=== PATIENT | male | born 1965 | race Hispanic/Latino ===

== ENCOUNTER 2023-07-25 03:19 | Inpatient (IN) | payer OTHER ==
[~2023-07-25] VITALS: Ht 172.7 cm; Wt 70.8 kg
[2023-07-25] VITALS (62 sets, daily range): BP systolic 80–154; BP diastolic 43–73; PULSE 56–85; RESP 10–40; O2SAT 93–97
[2023-07-25 03:53] LABS: BASOPHILS # (AUTO) 0.07 K/uL (0.00-0.20); BASOPHILS % (AUTO) 0.4 % (0.0-5.0); EOSINOPHILS # (AUTO) 1.86 K/uL (0.00-0.70); EOSINOPHILS % (AUTO) 9.6 % (0.0-8.0); HEMATOCRIT 38.2 % (42-54); IMMATURE GRANULOCYTE ABSOLUTE 0.16 K/uL (0-1); LYMPHOCYTES # (AUTO) 0.2 K/uL (1.0-4.8); LYMPHOCYTES % (AUTO) 1.1 % (21.0-51.0); MEAN CORPUSCULAR HGB CONC 38.5 g/dL (32.0-36.0); MONOCYTES # (AUTO) 1.9 K/uL (0.1-1.0); MONOCYTES % (AUTO) 9.7 % (3.0-13.0); NEUTROPHILS # (AUTO) 15.2 K/uL (1.8-7.7); NEUTROPHILS % (AUTO) 78.4 % (40.0-77.0); PLATELET COUNT (AUTO) 144 K/uL (130-400); WHITE BLOOD COUNT (AUTO) 19.4 K/uL (4.8-10.8)
[2023-07-25] MEDS ORDERED: ONDANSETRON 4MG INJ IVP ONE ×2 (04:00→04:30)
[2023-07-25 04:01] LABS: ALANINE AMINOTRANSFERASE 52 U/L (12-78); ALBUMIN 3.9 g/dL (3.5-5.0); ALCOHOL, BLOOD < 3 mg/dL (0-10); AMMONIA 59 umol/L (11-32); ASPARTATE AMINOTRANSFERASE 100 U/L (10-37); BILIRUBIN,TOTAL 4.5 mg/dL (0.2-1.0); CARBON DIOXIDE 34 mmol/L (21-32); CREATININE 1.7 mg/dL (0.5-1.5); GLOMERULAR FILTR. RATE CALC 46 mL/min (>90); GLUCOSE,RANDOM 176 mg/dL (70-105); TOTAL PROTEIN, SERUM 7.4 g/dL (6.0-8.3); UREA NITROGEN, BLOOD 19 mg/dL (7-18)
[2023-07-25 04:02] LABS: INR 1.22 (0.85-1.15)
[2023-07-25 04:03] LABS: PARTIAL THROMBOPLASTIN TIME 27.4 SEC (26.3-35.5); POTASSIUM 2.4 mmol/L (3.5-5.1); SODIUM SERUM 105 mmol/L (136-145)
[2023-07-25 04:04] LABS: CHLORIDE 60 mmol/L (101-111)
[2023-07-25] MEDS ORDERED: LEVETIRACETAM 500 MG/5 ML SD VIAL IV SCH (04:30)
[2023-07-25] MEDS ORDERED: HALOPERIDOL INJ 5 MG/ML VIAL IV SCH (04:30)
[2023-07-25] MEDS ORDERED: 0.9%NACL 1000ML 1,000 ML IV ONE (04:30)
[2023-07-25] MEDS ORDERED: POTASSIUM CHLORIDE 20MEQ/10ML 10 MEQ in 0.9%NACL 50ML 50 ML IV SCH ×4 (04:30)
[2023-07-25] MEDS ORDERED: 0.9%NACL 1000ML 1,000 ML IV SCH ×2 (04:30→05:00)
[2023-07-25 04:48] LABS: ABG BASE EXCESS 11.3 mmol/L (-2.0-3.0); ABG HCO3 36.2 mmol/L (21.0-28.0); ABG OXYGEN SATURATION 81.3 % (95.0-99.0); ABG PCO2 49 mmHg (35-48); ABG PH 7.491 (7.35-7.450); CARBON MONOXIDE 1.5; HHb 18.4; PO2, ARTERIAL BG 45.8 mmHg (83.0-108.0); VENT MODE, BG ROOMAIR (ROOM AIR)
[2023-07-25] MEDS ORDERED: POTASSIUM CHLORIDE 20MEQ/100ML 100 ML IV ONE ×2 (04:49→11:17)
[2023-07-25 04:53] LABS: THYROID STIMULATING HORMONE 1.21 uIU/mL (0.36-3.74)
[2023-07-25 04:59] LABS: ABG BASE EXCESS 10.2 mmol/L (-2.0-3.0); ABG HCO3 34.6 mmol/L (21.0-28.0); ABG OXYGEN SATURATION 88.8 % (95.0-99.0); ABG PCO2 45 mmHg (35-48); ABG PH 7.501 (7.35-7.450); CARBON MONOXIDE 1.3; VENT MODE, BG ROOMAIR (ROOM AIR)
[2023-07-25] MEDS ORDERED: ONDANSETRON 4MG INJ IV PRN (05:00)
[2023-07-25] MEDS ORDERED: LACTULOSE 20 GM/30 ML UDCUP PO PRN (05:00)
[2023-07-25] MEDS ORDERED: POTASSIUM CHLORIDE 20MEQ/100ML 100 ML IV SCH (05:00)
[2023-07-25] MEDS ORDERED: CHLORDIAZEPOXIDE HCL 25 MG CAP PO PRN (05:00)
[2023-07-25] MEDS ORDERED: PHARMACY COMMUNICATION MISC PRN (05:00)
[2023-07-25 05:46] LABS: CREATININE 1.2 mg/dL (0.5-1.5)
[2023-07-25] MEDS ORDERED: CEFTRIAXONE 1G VIAL IVPB ONE (06:00)
[2023-07-25] MEDS ORDERED: AZITHROMYCIN 500MG+NS 250ML IVPB SCH (06:00)
[2023-07-25 06:32] LABS: APPEARANCE,URINE CLEAR (CLEAR); BILIRUBIN,URINE NEGATIVE (NEGATIVE); COLOR,URINE YELLOW (YELLOW); GLUCOSE, URINE (UA) NEGATIVE (NEGATIVE); KETONES,URINE NEGATIVE (NEGATIVE); LEUKOCYTE ESTERASE ,URINE NEGATIVE Leu/uL (NEGATIVE); MUCUS,URINE RARE LPF (None Seen); NITRATE,URINE NEGATIVE (NEGATIVE); PROTEIN,URINE NEGATIVE (NEGATIVE); WBC,URINE 0-1 /HPF (0-1)
[2023-07-25 06:42] LABS: AMPHET/METH SCREEN,URINE NEGATIVE (NEGATIVE); BARBITURATE SCREEN, URINE NEGATIVE (NEGATIVE); BENZODIAZEPINES SCREEN,URINE NEGATIVE (NEGATIVE); CANNABINOID SCREEN,URINE NEGATIVE (NEGATIVE); COCAINE SCREEN,URINE NEGATIVE (NEGATIVE); OPIATE SCREEN,URINE NEGATIVE (NEGATIVE); PHENCYCLIDINE SCREEN,URINE NEGATIVE (NEGATIVE)
[2023-07-25] MEDS ORDERED: COMPOUND IV REFRIGERATED 1 EACH IVSOLN MISC PRN (07:00)
[2023-07-25] MEDS ORDERED: POTASSIUM CHLORIDE 20MEQ/100ML 100 ML IV PRN (07:00)
[2023-07-25] MEDS ORDERED: MAGNESIUM 2GM PREMIX 50ML 50 ML IV PRN (07:00)
[2023-07-25] MEDS ORDERED: COMPOUND IV MISC 1 EACH IVSOLN MISC PRN (07:00)
[2023-07-25] MEDS: NS-20 MEQ KCL 1000ML 1,000 ML IV SCH ×2 (07:39→16:44)
[2023-07-25 08:27] LABS: APPEARANCE,URINE CLEAR (CLEAR); BILIRUBIN,URINE NEGATIVE (NEGATIVE); COLOR,URINE LIGHT-YELLOW (YELLOW); GLUCOSE, URINE (UA) NEGATIVE (NEGATIVE); KETONES,URINE NEGATIVE (NEGATIVE); LEUKOCYTE ESTERASE ,URINE NEGATIVE Leu/uL (NEGATIVE); NITRATE,URINE NEGATIVE (NEGATIVE); OCCULT BLOOD,URINE NEGATIVE (NEGATIVE); PH,URINE 6.5 (5.0-8.0); PROTEIN,URINE NEGATIVE (NEGATIVE); RBC,URINE 0-1 /HPF (0-1); UROBILINOGEN,URINE 0.2 mg/dL (0.2-1.0)
[2023-07-25] MEDS ORDERED: SODIUM CHLORIDE 3% 500 ML IV ONE (08:30)
[2023-07-25 08:58] LABS: POTASSIUM 2.4 mmol/L (3.5-5.1)
[2023-07-25] MEDS: M.V.I. IV [ADULT] 10 ML, FOLIC ACID 1 MG, THIAMINE HCL 100 MG in 0.9%NACL 1000ML 1,000 ML IV SCH (08:59)
[2023-07-25] MEDS ORDERED: FOLIC ACID 1 MG TABLET PO SCH (09:00)
[2023-07-25] MEDS ORDERED: THIAMINE HCL 100 MG/ML 2ML VIAL IVP SCH (09:00)
[2023-07-25] MEDS ORDERED: PANTOPRAZOLE 40 MG/VIAL IVP SCH (09:00)
[2023-07-25] MEDS ORDERED: MULTIVITAMIN TABLET PO SCH (09:00)
[2023-07-25] MEDS ORDERED: THIAMINE HCL 100 MG/ML 2ML VIAL IM SCH (09:00)
[2023-07-25] MEDS: THIAMINE HCL 100 MG/ML 2ML VIAL IVP SCH ×2 (09:30→16:43)
[2023-07-25] MEDS: LACTULOSE 20 GM/30 ML UDCUP PO SCH ×3 (09:38→20:16)
[2023-07-25 09:46] LABS: HEMOGLOBIN A1C 4.9 % (4.0-6.0)
[2023-07-25 09:52] LABS: SARS-CoV-2, RNA, NAAT NEGATIVE SARS CoV-2 (NEGATIVE)
[2023-07-25 09:54] LABS: CHOLESTEROL 81 mg/dL (<200); HDL CHOLESTEROL 53 mg/dL (29-71); LDL DIRECT 28 mg/dL (0-99); TRIGLYCERIDES 50 mg/dL (30-200)
[2023-07-25 10:02] LABS: INFLUENZA TYPE A Negative For Type A (NEGATIVE)
[2023-07-25 10:10] LABS: INFLUENZA TYPE B Positive For Type B (NEGATIVE)
[2023-07-25 10:13] LABS: HIV 1&2 ANTIBODY Non-Reactive (Negative); HIV-1 p24 Antigen Non-Reactive (Negative)
[2023-07-25] MEDS: LEVOFLOXACIN 500 MG/D5W 100 ML 100 ML IV SCH (10:57)
[2023-07-25] MEDS ORDERED: OSELTAMIVIR PHOSPHATE 75 MG CAP PO ONE (11:00)
[2023-07-25] MEDS: KCL 20 MEQ ERTAB PO ONE ×2 (11:58→13:05)
[2023-07-25 12:06] LABS: POTASSIUM 2.3 mmol/L (3.5-5.1)
[2023-07-25] MEDS ORDERED: DIATR MEGLU/DIATRIZOATE SODIUM 30 ML BOTTLE ONE (12:26)
[2023-07-25] MEDS ORDERED: POTASSIUM CHLORIDE 10% ELIXIR 20 MEQ/15 ML UDCUP PO ONE (13:30)
[2023-07-25] MEDS: METRONIDAZOLE 500MG/100ML BAG 100 ML IVPB SCH ×2 (14:45→21:10)
[2023-07-25] MEDS ORDERED: IOHEXOL 350 MG/ML 100ML INFUS..BTL IV ONE (15:59)
[2023-07-25 17:17] LABS: CREATININE 0.9 mg/dL (0.5-1.5)
[2023-07-25 17:19] LABS: POTASSIUM 2.3 mmol/L (3.5-5.1)
[2023-07-25] MEDS: POTASSIUM CHLORIDE 10% ELIXIR 20 MEQ/15 ML UDCUP PO PRN ×3 (17:50→20:36)
[2023-07-25] MEDS: OSELTAMIVIR PHOSPHATE 75 MG CAP PO SCH (20:16)
[2023-07-25] MEDS: PANTOPRAZOLE 40 MG/VIAL IVP SCH (20:16)
[2023-07-25 20:31] LABS: CREATININE 0.8 mg/dL (0.5-1.5)
[2023-07-25 20:32] LABS: POTASSIUM 2.7 mmol/L (3.5-5.1)
[2023-07-25] MEDS: POTASSIUM CHLORIDE 10MEQ/100ML 100 ML IV PRN (21:11)
[2023-07-25] MEDS ORDERED: MAGNESIUM 4GM PREMIX 100ML IV SCH (22:30)
[2023-07-25] MEDS ORDERED: MAGNESIUM 4GM PREMIX 100ML IV ONE (22:44)
[2023-07-26] VITALS (68 sets, daily range): BP systolic 93–122; BP diastolic 42–68; PULSE 46–79; RESP 15–40; O2SAT 96–99
[2023-07-26 00:54] LABS: CREATININE 0.8 mg/dL (0.5-1.5)
[2023-07-26 00:57] LABS: POTASSIUM 2.7 mmol/L (3.5-5.1)
[2023-07-26] MEDS: POTASSIUM CHLORIDE 10MEQ/100ML 100 ML IV PRN ×4 (02:01→17:47)
[2023-07-26] MEDS: POTASSIUM CHLORIDE 10% ELIXIR 20 MEQ/15 ML UDCUP PO PRN ×4 (02:01→21:18)
[2023-07-26] MEDS: THIAMINE HCL 100 MG/ML 2ML VIAL IVP SCH ×3 (02:02→17:42)
[2023-07-26] MEDS: NS-20 MEQ KCL 1000ML 1,000 ML IV SCH ×2 (02:02→13:00)
[2023-07-26] MEDS: LACTULOSE 20 GM/30 ML UDCUP PO SCH ×4 (02:03→15:30)
[2023-07-26 04:48] LABS: BASOPHILS # (AUTO) 0.01 K/uL (0.00-0.20); BASOPHILS % (AUTO) 0.1 % (0.0-5.0); EOSINOPHILS # (AUTO) 0.01 K/uL (0.00-0.70); EOSINOPHILS % (AUTO) 0.1 % (0.0-8.0); HEMATOCRIT 35.1 % (42-54); IMMATURE GRANULOCYTE ABSOLUTE 0.05 K/uL (0-1); LYMPHOCYTES # (AUTO) 0.3 K/uL (1.0-4.8); LYMPHOCYTES % (AUTO) 3.6 % (21.0-51.0); MEAN CORPUSCULAR HEMOGLOBIN 31.9 pg (27.0-33.0); MEAN CORPUSCULAR HGB CONC 35.3 g/dL (32.0-36.0); MEAN CORPUSCULAR VOLUME 90.2 fL (79-99); MONOCYTES # (AUTO) 1.2 K/uL (0.1-1.0); MONOCYTES % (AUTO) 16.8 % (3.0-13.0); NEUTROPHILS # (AUTO) 5.4 K/uL (1.8-7.7); NEUTROPHILS % (AUTO) 78.7 % (40.0-77.0); PLATELET COUNT (AUTO) 101 K/uL (130-400); RED BLOOD CELL COUNT(AUTO) 3.89 MIL/uL (4.50-6.20); RED CELL DISTRIBUTION WIDTH 14.5 % (11.0-15.5); WHITE BLOOD COUNT (AUTO) 6.9 K/uL (4.8-10.8)
[2023-07-26 05:14] LABS: ALBUMIN 2.8 g/dL (3.5-5.0); BILIRUBIN,TOTAL 1.4 mg/dL (0.2-1.0); CREATININE 0.9 mg/dL (0.5-1.5); MAGNESIUM 2.9 mg/dL (1.80-2.40); POTASSIUM 3.6 mmol/L (3.5-5.1); TOTAL PROTEIN, SERUM 5.7 g/dL (6.0-8.3)
[2023-07-26] MEDS: METRONIDAZOLE 500MG/100ML BAG 100 ML IVPB SCH ×3 (06:04→21:17)
[2023-07-26] MEDS ORDERED: 0.9%NACL 1000ML 1,000 ML IV ONE (06:54)
[2023-07-26] MEDS: LEVOFLOXACIN 500 MG/D5W 100 ML 100 ML IV SCH (08:26)
[2023-07-26] MEDS: PANTOPRAZOLE 40 MG/VIAL IVP SCH (08:26)
[2023-07-26] MEDS: OSELTAMIVIR PHOSPHATE 75 MG CAP PO SCH ×3 (08:27→20:16)
[2023-07-26 08:31] LABS: CREATININE 0.8 mg/dL (0.5-1.5); POTASSIUM 3.7 mmol/L (3.5-5.1)
[2023-07-26] MEDS: M.V.I. IV [ADULT] 10 ML, FOLIC ACID 1 MG, THIAMINE HCL 100 MG in 0.9%NACL 1000ML 1,000 ML IV SCH (09:00)
[2023-07-26] MEDS ORDERED: PROPOFOL 10 MG/ML 20ML VIAL IV ONE ×2 (10:47→10:48)
[2023-07-26 11:57] LABS: CREATININE 0.8 mg/dL (0.5-1.5); POTASSIUM 3.5 mmol/L (3.5-5.1)
[2023-07-26 16:48] LABS: CREATININE 0.7 mg/dL (0.5-1.5); POTASSIUM 3.6 mmol/L (3.5-5.1)
[2023-07-26] MEDS: PANTOPRAZOLE 40 MG TAB DR PO SCH (20:16)
[2023-07-26 20:28] LABS: CREATININE 0.7 mg/dL (0.5-1.5); POTASSIUM 3.5 mmol/L (3.5-5.1)
[2023-07-26 21:22] LABS: SODIUM TIMED URINE SEE SEPARATE REPORT; TOTAL VOLUME URINE 24HR SEE SEPARATE REPORT; URINE COLLECTION PERIOD SEE SEPARATE REPORT
[2023-07-26 21:23] LABS: SODIUM URINE 24HR CALCULATION SEE SEPARATE REPORT
[2023-07-26] MEDS ORDERED: LORAZEPAM 2 MG/ML 1 ML VIAL IVP PRN (21:30)
[2023-07-27 00:09] VITALS: PULSE 56; RESP 18; O2SAT 98
[2023-07-27] MEDS: THIAMINE HCL 100 MG/ML 2ML VIAL IVP SCH ×2 (00:37→09:10)
[2023-07-27 03:58] VITALS: BP 118/69; PULSE 53; RESP 20
[2023-07-27 04:13] LABS: BASOPHILS # (AUTO) 0.01 K/uL (0.00-0.20); BASOPHILS % (AUTO) 0.2 % (0.0-5.0); EOSINOPHILS # (AUTO) 0.01 K/uL (0.00-0.70); EOSINOPHILS % (AUTO) 0.2 % (0.0-8.0); HEMATOCRIT 39.2 % (42-54); IMMATURE GRANULOCYTE ABSOLUTE 0.05 K/uL (0-1); LYMPHOCYTES # (AUTO) 0.5 K/uL (1.0-4.8); LYMPHOCYTES % (AUTO) 8.6 % (21.0-51.0); MEAN CORPUSCULAR HEMOGLOBIN 31.7 pg (27.0-33.0); MEAN CORPUSCULAR HGB CONC 33.7 g/dL (32.0-36.0); MONOCYTES # (AUTO) 0.9 K/uL (0.1-1.0); MONOCYTES % (AUTO) 15.6 % (3.0-13.0); NEUTROPHILS # (AUTO) 4.1 K/uL (1.8-7.7); NEUTROPHILS % (AUTO) 74.5 % (40.0-77.0); PLATELET COUNT (AUTO) 104 K/uL (130-400); RED BLOOD CELL COUNT(AUTO) 4.17 MIL/uL (4.50-6.20); RED CELL DISTRIBUTION WIDTH 14.6 % (11.0-15.5); WHITE BLOOD COUNT (AUTO) 5.5 K/uL (4.8-10.8)
[2023-07-27 04:23] LABS: INR 1.06 (0.85-1.15); PROTHROMBIN TIME 12.3 SEC (9.6-11.6)
[2023-07-27 04:29] LABS: ALBUMIN 2.7 g/dL (3.5-5.0); BILIRUBIN,DIRECT 0.6 mg/dL (0.0-0.3); BILIRUBIN,TOTAL 1.2 mg/dL (0.2-1.0); CREATININE 0.7 mg/dL (0.5-1.5); MAGNESIUM 1.7 mg/dL (1.80-2.40); PHOSPHORUS 1.1 mg/dL (2.5-4.9); POTASSIUM 4.5 mmol/L (3.5-5.1); TOTAL PROTEIN, SERUM 5.8 g/dL (6.0-8.3)
[2023-07-27] MEDS: METRONIDAZOLE 500MG/100ML BAG 100 ML IVPB SCH ×2 (05:13→13:15)
[2023-07-27 08:00] VITALS: BP 125/78; PULSE 56; RESP 18; O2SAT 99
[2023-07-27] MEDS ORDERED: LACTULOSE 20 GM/30 ML UDCUP PO SCH (09:00)
[2023-07-27] MEDS ORDERED: MULTIVITAMIN TABLET PO SCH (09:00)
[2023-07-27] MEDS ORDERED: FOLIC ACID 1 MG TABLET PO SCH (09:00)
[2023-07-27] MEDS: LEVOFLOXACIN 500 MG/D5W 100 ML 100 ML IV SCH (09:09)
[2023-07-27] MEDS: OSELTAMIVIR PHOSPHATE 75 MG CAP PO SCH (09:10)
[2023-07-27] MEDS: PANTOPRAZOLE 40 MG TAB DR PO SCH (09:10)
[2023-07-27 11:45] VITALS: BP 100/56; PULSE 56; RESP 18
[2023-07-27] MEDS ORDERED: LACT10SO9 PO (12:40)
[2023-07-27] MEDS ORDERED: LEVO-70 PO (12:40)
[2023-07-27] MEDS ORDERED: OSEL75CA17 PO (12:40)
[2023-07-27] MEDS ORDERED: METR-172 PO (12:40)
[2023-07-28] MEDS ORDERED: THIAMINE HCL 100 MG TABLET PO SCH (09:00)
== END 2023-07-27 16:30 | disposition home or self-care (01) | DRG 682 ==
LOC: EDH 03:19 → EDHIP 03:20 → 2BH 06:17 → 4BH 07-27 05:39
PROVIDERS: ADMIT Hospitalist; ATTEND Hospitalist
PROC: 0DB78ZX Excision of Stomach, Pylorus, Via Natural or Artificial Opening Endoscopic, Diagnostic (ICD-10-PCS; principal; 2023-07-26)
DX: N17.0 Acute kidney failure with tubular necrosis (principal); J96.01 Acute respiratory failure with hypoxia; F10.239 Alcohol dependence with withdrawal, unspecified; G93.49 Other encephalopathy; E87.1 Hypo-osmolality and hyponatremia; Z20.822 Contact with and (suspected) exposure to COVID-19; K21.00 Gastro-esophageal reflux disease with esophagitis, without bleeding; K29.50 Unspecified chronic gastritis without bleeding; E86.0 Dehydration; E87.6 Hypokalemia; E87.8 Other disorders of electrolyte and fluid balance, not elsewhere classified; Z90.49 Acquired absence of other specified parts of digestive tract
CPT/HCPCS: 36415; 70450; 71045; 71270; 74178; 80048; 80053; 80061; 80076; 80305; 81001; 82105; 82140; 82435; 82533; 82803; 82947; 83036; 83605; 83690; 83735; 83930; 83935; 84100; 84132; 84295; 84300; 84443; 85018; 85025; 85610; 85730; 86701; 87040; 87390; 87635; 87804; 88305; 88312; 93005; 96374; 96375; 99291; 99292; C9113; G0378; J0696; J1630; J1953; J1956; J2405; J2704; J3411; J3475; J3480; J3490; J7030; Q9963; Q9967; A4215; A4620; A7002